=== PATIENT | female | born 1980 | race Two or more races ===

== ENCOUNTER 2017-12-24 07:11 | Emergency (ER) | payer OTHER ==
[~2017-12-24] VITALS: Ht 165.1 cm; Wt 63.6 kg
[2017-12-24 08:00] VITALS: BP 118/81
== END 2017-12-24 08:35 | disposition home or self-care (01) ==
LOC: EMS 07:15
DX: S16.1XXA Strain of muscle, fascia and tendon at neck level, initial encounter (principal); S13.9XXA Sprain of joints and ligaments of unspecified parts of neck, initial encounter; V49.69XA Unspecified car occupant injured in collision with other motor vehicles in traffic accident, initial encounter; Y93.89 Activity, other specified; Y92.410 Unspecified street and highway as the place of occurrence of the external cause; Y99.8 Other external cause status
CPT/HCPCS: 99282